=== PATIENT | female | born 1985 | race Caucasian/White ===

== ENCOUNTER 2018-08-17 08:47 | Emergency (ER) | payer MEDICARE, MEDICAID ==
[~2018-08-17] VITALS: Ht 152.4 cm; Wt 82.6 kg
[2018-08-17] VITALS (30 sets, daily range): BP systolic 116–186; BP diastolic 81–116
[~2018-08-17 08:47] MED LIST: CARB300C9 PO; FLUT1DIS26 IH; LORA10TA7 PO; METO-387 PO; SPIR25TA5 PO
[2018-08-17] MEDS ORDERED: fentaNYL INJECTION 100 MCG/2 ML AMP IVP STA ×2 (08:55→10:24)
--- OUTSIDE RECORDS SUMMARY | 2018-08-17 08:59 | XMS REPORT | Clinical Summary ---
Author Author [facility] Organization [facility] Address Unknown Phone Unavailable Care Team Providers Care Network Operations Manager Name Role Phone Dean Ochoa MD Unavailable Bautista Riojas MD Unavailable Stephanie Rodríguez MD Unavailable Keshia García RN Unavailable Unavailable Tina White MD PCP Source Comments Some departments are not documenting in the electronic medical record. If you do not see the information that you expected, contact Release of Information in the Health Information Management department at [phone] for further assistance in locating additional records.[facility] Allergies Active Allergy Reactions Severity Noted Date Comments Humberto Inhibitors UNKNOWN 09/01/2010 Procaine EDEMA 09/01/2010 Facial swelling Unclassified Drug UNKNOWN 09/01/2010 Allergic to ARB's Current Medications Prescription Sig. Disp. Refills Start End Date Status Date spironolactone Take 1 Tab by mouth 90 Tab 0 11/14/20 Active (ALDACTONE) 25 mg tablet daily. 13 cetirizine (ZYRTEC) 10 mg Take 10 mg by mouth Active tablet daily. carBAMazepine ER Take 300 mg by mouth Active (CARBATROL) 300 mg twice daily. capsule fluticasone-salmeterol Inhale 1 Puff by mouth Active (ADVAIR DISKUS) 250-50 every 12 hours. 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 Hearing loss 09/01/2010 PFO (patent foramen ovale)VS ASD 09/01/2010 Family History Medical History Relation Name Comments Allergy-severe Mother Bipolar Disorder Sister 6 siblings with bipolar disorder Relation Name Status Comments Brother Alive Brother Alive Brother Alive Brother Alive Brother Alive Father Mother Alive Sister Alive Social History Tobacco Use Types Packs/Day Years Used Date Never Smoker Smokeless Tobacco: Never Used Alcohol Use Drinks/Week oz/Week Comments No Sex Assigned at Date Recorded Not on file Last Filed Vital Signs Vital Sign Reading Time Taken Blood Pressure 146/84 09/30/2016 1:52 PM HOUSING SPECIALIST Pulse 89 09/30/2016 1:52 PM HOUSING SPECIALIST Temperature 37.1 C (98.8 F) 06/13/2015 1:01 PM CDT Respiratory Rate - - Oxygen Saturation 99% 09/30/2016 1:52 PM HOUSING SPECIALIST Inhaled Oxygen - - Concentration Weight 77.1 kg (170 lb) 09/30/2016 1:52 PM HOUSING SPECIALIST Height 152.4 cm (5') 09/30/2016 1:52 PM HOUSING SPECIALIST Body Mass Index 33.2 09/30/2016 1:52 PM HOUSING SPECIALIST Plan of Treatment Health Maintenance Due Date Last Done Comments PHYSICAL (COMPREHENSIVE) 1992 EXAM PERTUSSIS VACCINE 1996 HIV SCREENING 2000 TETANUS VACCINE 2002 CERVICAL CANCER SCREENING 06/13/2018 06/13/2015 INFLUENZA VACCINE 06/15/2018 Results Not on filefrom Last 3 Months
--- OUTSIDE RECORDS SUMMARY | 2018-08-17 08:59 | XMS REPORT | Continuity of Care Document ---
Author Author [facility] Organization [facility] Address Unknown Phone Unavailable Allergies Active Description Code Type Severity Reaction Onset Reported/Identified Relationship to Patient Clinical Status Yes ROSALVA INHIBITORS UNKNOWN UNKNOWN Yes ARB-ANGIOTENSIN RECEPTOR ANTAGONIST UNKNOWN UNKNOWN Yes CHLORAL HYDRATE (BULK) UNKNOWN UNKNOWN Yes IBUPROFEN UNKNOWN UNKNOWN Yes ibuprofen [id number] Drug Allergy Unknown N/A 01/20/2016 Yes lidocaine [id number] Drug Allergy Unknown N/A 01/20/2016 Medications There is no data. Problems Date Dx Coded Attending Type Code Diagnosis Diagnosed By 12/24/2015 CLOTHKAMLESH FOUNTAIN DDS Ot F79 12/24/2015 CLOTHKAMLESH FOUNTAIN DDS Ot K02.9 01/10/2016 Ot K02.9 01/10/2016 Ot Z01.812 01/10/2016 Ot Z11.2 01/20/2016 DURGA RIGGS DO Ot M25.462 01/20/2016 DURGA RIGGS DO Ot W01.0XXA 01/20/2016 DURGA RIGGS DO Ot Y99.8 01/21/2016 Ot K02.9 01/21/2016 Ot Z01.812 01/21/2016 Ot Z11.2 01/29/2016 Ot K02.9 01/29/2016 Ot Z01.812 01/29/2016 Ot Z11.2 01/30/2016 KAYLI REVELES MD Ot M23.352 01/30/2016 KAYLI REVELES MD Ot M25.462 01/30/2016 KAYLI REVELES MD Ot M94.8X6 02/18/2016 KAYLI REVELES MD Ot M23.352 02/18/2016 KAYLI REVELES MD Ot M25.462 02/18/2016 KAYLI REVELES MD Ot M94.8X6 03/04/2016 KAYLI REVELES MD Ot M23.352 OTH MENISCUS DERANG, POSTERIOR HORN OF L 03/04/2016 KAYLI REVELES MD Ot M25.462 EFFUSION, LEFT KNEE 03/04/2016 KAYLI REVELES MD Ot M94.8X6 OTHER SPECIFIED DISORDERS OF CARTILAGE, 05/27/2018 PK IRWIN 401.0 MALIGNANT ESSENTIAL HYPERTENSION 05/27/2018 PK IRWIN I10 ESSENTIAL (PRIMARY) HYPERTENSION 05/27/2018 PK IRWIN 401.0 MALIGNANT ESSENTIAL HYPERTENSION 05/27/2018 PK IRWIN I10 ESSENTIAL (PRIMARY) HYPERTENSION Procedures There is no data. Results There is no data. Encounters ACCT No. Visit Date/Time Discharge Status Pt. Type Provider Facility Loc./Unit Complaint [id number] 01/29/2016 11:59:00 01/29/2016 23:59:59 CLS Outpatient KAYLI REVELES MD [facility] RAD [id number] 01/20/2016 22:08:00 01/20/2016 23:15:00 DIS Emergency DURGA RIGGS DO [facility] ER [id number] 12/24/2015 10:55:00 12/24/2015 23:59:59 CLS Outpatient KAMLESH TRAVIS DDS [facility] [id number] 12/17/2015 13:50:00 Document Registration [id number] 05/27/2018 08:30:00 05/27/2018 23:59:00 DIS Outpatient PK IRWIN
[2018-08-17] MEDS ORDERED: LORazepam INJ 2 MG/ML (ATIVAN) VIAL IVP ONE (09:00)
--- NOTE | 2018-08-17 09:57 | Diagnostic Imaging Report ---
INDICATION: Fall. TIME OF EXAMINATION: 10:05 AM. COMPARISON: No prior study is available for comparison. FINDINGS: The heart size is mildly enlarged; however, this may be owing to portable technique. The lungs are clear. The pulmonary vascularity is normal. No infiltrate, effusion, or pneumothorax is identified. Note is made that the left shoulder appears to be anteriorly dislocated. There appears to be a fracture of the greater tuberosity. IMPRESSION: 1. No acute cardiopulmonary process is detected. 2. Left shoulder anterior dislocation with proximal humerus fracture. Dictated by: Dictated on workstation # [id number]
--- NOTE | 2018-08-17 09:57 | Diagnostic Imaging Report ---
INDICATION: Fall with left shoulder injury. TIME OF EXAMINATION: 10:06 AM. FINDINGS: Three views of the left shoulder demonstrate an anterior shoulder dislocation. The humeral head is in a subcoracoid location. There is a fracture involving the greater tuberosity. The acromioclavicular alignment is normal. IMPRESSION: Anterior left shoulder dislocation with greater tuberosity fracture of the proximal humerus. Dictated by: Dictated on workstation # [id number]
--- NOTE | 2018-08-17 09:58 | Diagnostic Imaging Report ---
INDICATION: Fall, left shoulder pain. TIME OF EXAMINATION: 10:07 AM. FINDINGS: Two views of the left humerus demonstrate an anterior left shoulder dislocation. There is a fracture involving the greater tuberosity with some slight distraction of the fracture fragments. The glenoid appears intact. The acromioclavicular alignment is normal. The alignment at the elbow appears normal. IMPRESSION: Anterior shoulder dislocation with greater tuberosity fracture. Dictated by: Dictated on workstation # [id number]
--- NOTE | 2018-08-17 10:16 | Diagnostic Imaging Report ---
PROCEDURE: CT head and CT cervical spine without contrast. TECHNIQUE: Multiple contiguous axial images were obtained through the brain and cervical spine without the use of intravenous contrast. Sagittal and coronal reformations through the cervical spine were then performed. INDICATION: Fall. No prior studies are available for comparison. CT head: The ventricles and sulci are within normal limits. No sulcal effacement or midline shift is seen. No acute intra-axial or extra-axial hemorrhage is detected. Cisterns are patent. The visualized paranasal sinuses are clear apart from a mucus retention cyst or polyp in the left maxillary sinus. IMPRESSION: No acute intracranial process is detected. CT cervical spine: Curvature and alignment of the cervical spine is normal. No fracture or subluxation is identified. The prevertebral tissues are within normal limits. Odontoid is intact. IMPRESSION: No acute bony abnormality is identified. Dictated by: Dictated on workstation # [id number]
--- NOTE | 2018-08-17 10:47 | Diagnostic Imaging Report ---
Clinical indication: Patient is status post fall. Exam: Axial CT scan of the thoracic and lumbar spine performed without IV contrast. Sagittal and coronal reformations were performed. Bone and soft tissue windows were created. Comparison: None. Findings: There is no acute thoracic or lumbar fracture or dislocation. Thoracic and lumbar spine has normal alignment. The visualized extrathoracic, and lumbar soft tissue structures are unremarkable. There is suggestion of diffuse disc bulge with severe loss of intervertebral disc height at the L5-S1 level. There is an associated moderate-sized posterior disc herniation at the L5-S1 level. There is no major bilateral neural foramen narrowing or central canal narrowing. impression: 1: There is no acute thoracic spine and lumbar spine fracture or dislocation. 2: There is L5-S1 degenerative disc disease with diffuse disc bulge and posterior disc herniation. Dictated by: Dictated on workstation # [id number]
[2018-08-17] MEDS ORDERED: MIDAZOLAM 2 MG/2 ML (VERSED) VIAL INJ ONE (11:00)
[2018-08-17] MEDS ORDERED: fentaNYL INJECTION 100 MCG/2 ML AMP INJ ONE (11:00)
[2018-08-17] MEDS ORDERED: MIDAZOLAM 5 MG/5 ML (VERSED) VIAL ONE ×2 (11:00→11:05)
[2018-08-17] MEDS ORDERED: ACHD5005 PO (11:19)
--- NOTE | 2018-08-17 11:19 | ED Fall/Injury ---
General Chief Complaint: Upper Extremity Stated Complaint: FALL Nursing Triage Note: PT SUFFERED A FALL AND IS VERBALIZING SEVERE SHOULDER AND BACK PAIN. PT ARRIVED TO THE ED VIA EMS ON [facility]RE[facility]CER WITH C COLLAR IN PLACE. MUCH OF THE PTS MEDICAL HX IS TAKEN FROM THE PARENTS D/T THE PT BEING SPECIAL NEEDS. Allergies and Home Medications Allergies Coded Allergies: ibuprofen (Verified Allergy, Unknown, 01/20/16) lidocaine (Verified Allergy, Unknown, 01/20/16) Home Medications Carbamazepine 300 Mg Cpmp.12hr, 300 MG PO BID, (Reported) Fluticasone/Salmeterol 1 Each Blst.w.dev, 1 EACH IH BID, (Reported) Loratadine 10 Mg Tablet, 10 MG PO DAILY, (Reported) Metoprolol Succinate 25 Mg Tab.er.24h, 25 MG PO HS, (Reported) Spironolactone 25 Mg Tablet, 25 MG PO DAILY, (Reported) Past Upyqgly-Fwmgad-Bmywio Hx Patient Social History Recent Foreign Travel: No Contact w/Someone Who Travel: No Recent Infectious Disease Expo: No Immunizations Up To Date Date of Pneumonia Vaccine: Nov 15, 2012 Seasonal Allergies Seasonal Allergies: No Past Medical History Asthma Reproductive Disorders: No Female Reproductive Disorders: Denies Physical Exam Vital Signs Vital Signs - First Documented 08/17/18 08:53 Pulse 88 Resp 22 B/P (MAP) 186/103 (130) Pulse Ox 97 O2 Delivery Room Air Capillary Refill : Less Than 3 Seconds Height, Weight, BMI Height: 5'0" Weight: 182lbs. 0.0oz. 82.609501rf; 34.56 BMI Method:Stated Progress/Results/Core Measures Results/Orders My Orders Orders - DURGA RIGGS DO Saline Lock/Iv-Start (08/17/18 08:55) Monitor-Rhythm Ecg Trace Only (08/17/18 08:55) Ct Head/Cervical Spine Wo (08/17/18 08:55) Chest 1 View, Ap/Pa Only (08/17/18 08:55) Shoulder, Left, 3 Views (08/17/18 08:55) Humerus, Left, 2 Views (08/17/18 08:55) Fentanyl Injection (Sublimaze Injection (08/17/18 08:55) Lorazepam Injection (Ativan Injection) (08/17/18 09:00) Ct Thoracic/Lumbar Spine Wo (08/17/18 09:06) Fentanyl Injection (Sublimaze Injection (08/17/18 10:24) Conscious Sedation (08/17/18 10:50) Rt Request For Service (08/17/18 10:50) Fentanyl Injection (Sublimaze Injection (08/17/18 11:00) Saline Lock/Iv-Start (08/17/18 10:50) Vital Signs-Conscious Sedation (08/17/18 10:50) Midazolam Injection (Versed Injection) (08/17/18 11:00) Midazolam Injection (Versed Injection) (08/17/18 11:00) Shoulder, Left, 2 Views (08/17/18 11:09) Midazolam Injection (Versed Injection) (08/17/18 11:05) Shoulder Immoblizer (08/17/18 11:13) Medications Given in ED Current Medications Medications Dose Ordered Sig/Clint Route Start Time Stop Time Status Last Admin Dose Admin Lorazepam 2 mg ONCE ONCE IVP 08/17/18 09:00 08/17/18 09:01 DC 08/17/18 09:24 2 MG Vital Signs/I&O 08/17/18 08:53 Pulse 88 Resp 22 B/P (MAP) 186/103 (130) Pulse Ox 97 O2 Delivery Room Air Blood Pressure Mean: 130 Departure Impression Primary Impression: Status post fall Additional Impression: Fracture dislocation of left shoulder joint Disposition: 01 HOME, SELF-CARE Condition: Improved Departure-Patient Inst. Referrals: LASHANDA KOHLER RACHEL L MD (PCP/Family) Primary Care Physician Patient Instructions: How to Use a Shoulder Sling, Preventing Falls, Shoulder Dislocation (DC), Shoulder Fracture (DC) Add. Discharge Instructions: WEAR IMMOBILIZER AT ALL TIMES ICE TO AREA AT 20 MINUTE INTERVALS FOLLOW UP WITH DR. KOHLER/ ORTHO 4 STATES THIS WEEK FOR FURTHER CARE All discharge instructions reviewed with patient and/or family. Voiced understanding. Scripts Hydrocodone Bit/Acetaminophen (Hydrocodone/Acetaminophen 5/325mg Tablet) 1 Tab Tab 1-2 EACH PO Q6H PRN for PAIN-MODERATE MDD 10, #20 TAB Prov: DURGA RIGGS DO 08/17/18 DURGA RIGGS DO Aug 17, 2018 11:19
--- NOTE | 2018-08-17 11:23 | Diagnostic Imaging Report ---
INDICATION: Left shoulder dislocation, status post reduction. TIME OF EXAMINATION: 11:12 a.m. FINDINGS: Single view of the left shoulder demonstrates normal glenohumeral alignment. Anterior dislocation has been reduced. Fracture of the greater tuberosity is again seen. Acromioclavicular alignment is normal. IMPRESSION: Satisfactory reduction of left anterior shoulder dislocation. Dictated by: Dictated on workstation # [id number]
== END 2018-08-17 12:58 | disposition home or self-care (01) ==
LOC: ER 08:47
DX: S42.92XA Fracture of left shoulder girdle, part unspecified, initial encounter for closed fracture (principal); J45.909 Unspecified asthma, uncomplicated; Z88.6 Allergy status to analgesic agent; Z88.4 Allergy status to anesthetic agent; X58.XXXA Exposure to other specified factors, initial encounter
CPT/HCPCS: 70450; 71045; 72125; 72128; 72131; 73020; 73030; 73060; 93041

== ENCOUNTER 2022-04-21 12:00 | Emergency (ER) | payer MEDICARE, MEDICAID ==
[~2022-04-21] VITALS: Ht 152 cm; Wt 91.0 kg
[~2022-04-21 12:00] MED LIST changes: +ACHD5005 PO; -METO-387 PO; +MTP25TSR PO
--- NOTE | 2022-04-21 13:33 | ED Lower Extremity ---
General Chief Complaint: Lower Extremity Stated Complaint: L KNEE PAIN Nursing Triage Note: DAD BEL PT IN ET SAID SHE IS HAVING TROUBLE WALKING ET THINKS SHE MIGHT HAVE FELL AND HURT HER LEFT KNEE YESTERDAY. Source: patient Exam Limitations: no limitations History of Present Illness Date Seen by Provider: Apr 21, 2022 Time Seen by Provider: 13:30 Initial Comments Patient is a 36-year-old female with a history of seizures, special needs who presents ED with left leg pain. According to family at bedside patient has been complaining of pain over the past 2 days. Wanting to favor the left leg. Unsure if patient fell but does have a history of surgery to the left knee. Patient is complaining more pain in her calf posterior knee and lower leg. He noted swelling of the left leg without redness or bruising. No history of DVT. No recent travels. Concerning for knee sprain, DVT. Denies chest pain, shortness of breath, headache, dizziness. Denies taking thing for pain. According to family they state patient feels embarrassed to tell if she did injure her leg. Denies give anything for pain Allergies and Home Medications Allergies Coded Allergies: ibuprofen (Verified Allergy, Unknown, 01/20/16) lidocaine (Verified Allergy, Unknown, 01/20/16) Patient Home Medication List Home Medication List Reviewed: Yes Carbamazepine (Carbamazepine) 300 Mg Cpmp.12hr, 300 MG PO BID, (Reported) Entered as Reported by: NOHEMY ZAMARRIPA on 12/17/15 1415 Fluticasone/Salmeterol (Advair 250-50 Diskus) 1 Each Blst.w.dev, 1 EACH IH BID, (Reported) Entered as Reported by: NOHEMY ZAMARRIPA on 12/17/15 1415 Hydrocodone Bit/Acetaminophen (Lortab 5 Mg Tablet) 1 Tab Tab, 1-2 EACH PO Q6H PRN for PAIN-MODERATE Prescribed by: DURGA RIGGS on 08/17/18 1119 Loratadine (Loratadine) 10 Mg Tablet, 10 MG PO DAILY, (Reported) Entered as Reported by: NOHEMY ZAMARRIPA on 12/17/15 1415 Metoprolol Succinate (Metoprolol Succinate) 25 Mg Tab.er.24h, 25 MG PO HS, (Reported) Entered as Reported by: ONHEMY ZAMARRIPA on 12/17/151414 Spironolactone (Spironolactone) 25 Mg Tablet, 25 MG PO DAILY, (Reported) Entered as Reported by: NOHEMY ZAMARRIPA on 12/17/151414 Review of Systems Constitutional: No chills, No diaphoresis, No malaise, No weakness EENTM: No blurred vision, No double vision Respiratory: No cough Cardiovascular: No chest pain, No edema Gastrointestinal: No abdominal pain, No diarrhea, No nausea, No vomiting Genitourinary: No decreased output, No discharge Musculoskeletal: No back pain; joint pain, muscle pain, muscle stiffness Skin: No change in color; other (leg swelling) Past Ipsomaq-Aqttlx-Edqxkp Hx Seasonal Allergies Seasonal Allergies: No Past Medical History Surgeries: No (UNKNOWN) Respiratory: Yes Asthma Cardiac: Yes Hypertension Neurological: Yes Developmental Disorder Reproductive Disorders: No Female Reproductive Disorders: Denies Gastrointestinal: No Musculoskeletal: Yes (LEFT KNEE "TORN LIGAMENT" 2010-NO SURGERY) Endocrine: No HEENT: No Cancer: No Psychosocial: No Integumentary: No Blood Disorders: No Physical Exam Vital Signs Vital Signs - First Documented 04/21/22 12:35 Temp 36.3 Pulse 74 Resp 16 B/P (MAP) 184/77 (112) Pulse Ox 97 O2 Delivery Room Air Capillary Refill : Less Than 3 Seconds Height, Weight, BMI Height: 5'0" Weight: 182lbs. 0.0oz. 82.551212ab; 39.00 BMI Method:Stated General Appearance: WD/WN, no apparent distress HEENT: PERRL/EOMI, normal ENT inspection, TMs normal, pharynx normal Neck: non-tender, full range of motion, supple, normal inspection Cardiovascular: regular rate, rhythm, no edema, no gallop, no JVD Respiratory: chest non-tender, lungs clear, normal breath sounds, no respiratory distress, no accessory muscle use Gastrointestinal: normal bowel sounds, non tender, soft, no organomegaly Legs: left leg pain, left leg soft tissue tenderness, left leg swelling Knees: left knee pain, left knee soft tissue tenderness Ankles: bilateral ankle non-tender, bilateral ankle normal inspection, bilateral ankle normal range of motion Feet: bilateral foot non-tender, bilateral foot normal inspection, bilateral foot normal range of motion Neurologic/Psychiatric: web production assistant II-XII nml as tested, no motor/sensory deficits, alert, normal mood/affect, oriented x 3 Skin: normal color, warm/dry Procedures/Interventions Patient Education: Explained Benefits, Explained Risks, Pt. Ack. Understanding Breath Sounds per Auscultation: Clear Heart Sounds per Auscultation: Regular Airway Exam: Mouth opens >2 fingers Progress/Results/Core Measures Results/Orders My Orders Orders - BECCA ELIZONDO Knee, Left, 3 Views (04/21/22 13:28) Tibia/Fibula, Left, 2 Views (04/21/22 13:29) Us Venous Lower Ext Lt (04/21/22 13:28) Vital Signs/I&O 04/21/22 04/21/22 12:35 14:27 Temp 36.3 Pulse 74 66 Resp 16 16 B/P (MAP) 184/77 (112) 146/84 Pulse Ox 97 100 O2 Delivery Room Air Room Air Blood Pressure Mean: 112 Departure Communication (PCP) X-ray was negative for fracture of the left knee did show small joint effusion. X-ray of the left tib-fib negative for fracture. Ultrasound was negative for DVT. She does have some mild swelling to the left leg. Possible injury patient cannot recall. History of arthroscopy left knee according to family. Possible ligament versus meniscus injury however she cannot recall any specific type of injury. Recommend rest for the next week. Patient does have a stationary bike which would likely benefit for physical therapy. Anti-inflammatories for pain. Knee brace for support. Discussed assistance while walking. Orthopedic outpatient follow-up in 7 to 10 days if pain progress. Family agrees with plan of action Impression Primary Impression: Sprain of knee Disposition: 01 HOME, SELF-CARE Condition: Stable Departure-Patient Inst. Decision time for Depature: 14:21 Referrals: NO,LOCAL PHYSICIAN (PCP) Primary Care Physician OLIVER MEZA MD Patient Instructions: Knee Sprain (DC) Add. Discharge Instructions: Recommend rest. Ice and elevate. Anti-inflammatories for pain. Orthopedic outpatient follow-up if pain progress or worsen. May continue the bike once pain starts to improve All discharge instructions reviewed with patient and/or family. Voiced understanding. BECCA ELIZONDO Apr 21, 2022 13:33
--- NOTE | 2022-04-21 14:05 | Diagnostic Imaging Report ---
PROCEDURE: US left lower extremity venous. TECHNIQUE: Multiple real-time grayscale images were obtained over the left lower extremity in various projections. Additional duplex Doppler and color Doppler images were also obtained. INDICATION: Left leg pain EXAMINATION: Grayscale and color Doppler evaluation of the deep veins of the left lower extremity were performed with waveform analysis. FINDINGS: Continuous venous flow is present. No intraluminal filling defect is identified. There is normal compressibility and response to augmentation. No abnormal perivascular fluid collection is identified. IMPRESSION: No ultrasound evidence of left lower extremity deep venous thrombosis. Dictated by: Dictated on workstation # [id number]
--- NOTE | 2022-04-21 14:07 | Diagnostic Imaging Report ---
HISTORY: Left tibia and fibula pain. COMPARISON: None. TECHNIQUE: Two views of the left tibia and fibula. FINDINGS: No acute fracture or dislocation is seen in the left tibia and fibula. Alignment appears normal. There are degenerative changes in the medial left knee. There is a small left knee joint effusion. IMPRESSION: 1. No acute osseous abnormality is seen in the left tibia/fibula. 2. Degenerative change and small effusion in the left knee. Dictated by: Dictated on workstation # [id number]
--- NOTE | 2022-04-21 14:08 | Diagnostic Imaging Report ---
INDICATION: Fall with left knee pain. TIME OF EXAM: 1:59 p.m. FINDINGS: There is medial and patellofemoral compartmental degenerative change with joint space narrowing and marginal spurring. No fracture, dislocation, or effusion is seen. There does appear to be some soft tissue swelling in the anterior knee overlying the patella. IMPRESSION: Degenerative changes and soft tissue swelling. No acute bony abnormality is detected. Dictated by: Dictated on workstation # [id number]
[2022-04-21 14:27] VITALS: BP 146/84
== END 2022-04-21 14:26 | disposition home or self-care (01) ==
LOC: EDUNIT# 12:00 → ER 12:01
DX: S83.92XA Sprain of unspecified site of left knee, initial encounter (principal); X58.XXXA Exposure to other specified factors, initial encounter
CPT/HCPCS: 73562; 73590